=== PATIENT | female | born 1955 | race Caucasian/White ===

== ENCOUNTER 2016-10-10 17:30 | Emergency (ER) | payer BC, MEDICARE ==
[~2016-10-10 17:30] MED LIST: ALPRAZOLAM ER1 MG PO; ASPIRIN EC81 M1 PO; ASPIRIN PO; AVINZA PO; CARAFATE1 G PO; CEPHALEXIN500 M1 PO; CYMBALTA PO; DEXILANT60 MG PO; DICLOFENAC PO; ENALAPRIL MALEA10 MG PO; EXCEDRIN EXTRA1 TAB PO; EXCEDRIN MIGRA1 EACH PO; EXCEDRIN MIGRAI1 TA1 PO; FUROSEMIDE40 MG PO; HCTZ; HYDROCHLOROTHIA25 MG PO; HYDROCODON-ACE1 EAC4 PO; HYDROGESIC 5/501 CAP PO; IMITREX SUBQ; IMITREX6 MG/0.5 M SQ; KLONOPIN1 MG PO; LEXAPRO; LORTAB 10/500 T1 TAB PO; METOPROLOL SUCC25 MG PO; METOPROLOL TAR25 MG PO; MORPHINE; MORPHINE INJ; NASAL SPRAY30 M1; NORCO 5/325 TAB1 TAB PO; NUVIGIL150 MG PO; OMEPRAZOLE20 M2 PO; OXYCONTIN; PERCOCET10 PO; POTASSIUM CHLO10 ME1 PO; POTASSIUM20 MEQ/PKT PO; PRINIVIL10 MG PO; PRISTIQ50 MG PO; PROZAC PO; SINEX NASAL SPRAY; TRIAMTERENE/HCT1 TA3 PO; VENLAFAXINE HCL75 M1 PO; WELLBUTRIN PO; ZOLPIDEM TARTRA10 MG PO; [UNRECOGNIZED DRUG - REMARK]
== END 2016-10-10 17:38 | disposition home or self-care (01) ==
LOC: CFTX 17:30
DX: T85.695A Other mechanical complication of other nervous system device, implant or graft, initial encounter (principal); I10 Essential (primary) hypertension; Z88.5 Allergy status to narcotic agent; Z91.040 Latex allergy status; Z79.899 Other long term (current) drug therapy
CPT/HCPCS: 99282